=== PATIENT | female | born 2000 | race Two or more races ===

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

== ENCOUNTER 2023-09-04 21:26 | Emergency (ER) | payer OTHER, SELFPAY ==
[~2023-09-04] VITALS: Ht 157.5 cm; Wt 100.7 kg
[2023-09-05 05:38] LABS: APPEARANCE, URINE HAZY (CLEAR); BACTERIA, URINE AUTO NEGATIVE (NEGATIVE); BILIRUBIN, URINE AUTO NEGATIVE (NEGATIVE); BLOOD, URINE BLOOD 3+ (NEGATIVE); COLOR, URINE YELLOW (YELLOW); GLUCOSE, URINE (UA) AUTO NEGATIVE (NEGATIVE); KETONE, URINE AUTO NEGATIVE (NEGATIVE); LEUKOCYTE ESTERASE, URINE AUTO NEGATIVE (NEGATIVE); MUCUS, URINE SMALL (NEGATIVE); NITRITE, URINE AUTO NEGATIVE (NEGATIVE); PROTEIN, URINE AUTO NEGATIVE (NEGATIVE); RBC, URINE AUTO 1 /HPF (0-3); SPECIFIC GRAVITY URINE AUTO 1.028 (1.002-1.035); SQUAMOUS EPITHELIAL CELL UR AU 16 /HPF (0-6); UROBILINOGEN, URINE AUTO 0.2 mg/dL (0.0-2.0); WBC, URINE AUTO 2 /HPF (0-3)
[2023-09-05 07:18] VITALS: BP 119/56; TEMP 98; O2SAT 99
== END 2023-09-05 07:25 | disposition home or self-care (01) ==
LOC: M ED 21:26
DX: O20.0 Threatened abortion (principal); Z91.018 Allergy to other foods; Z3A.01 Less than 8 weeks gestation of pregnancy

== ENCOUNTER → 2023-12-13 | Outpatient (CLI) | payer OTHER | LOC: M RAD 13:19 | PROVIDERS: ATTEND Obstetrics & Gynecology | DX: O43.892 Other placental disorders, second trimester (principal); Z3A.22 22 weeks gestation of pregnancy; O41.02X0 Oligohydramnios, second trimester, not applicable or unspecified ==

== ENCOUNTER → 2023-12-17 | Outpatient (CLI) | payer OTHER ==
[2023-12-17 15:29] LABS: HEMATOCRIT 32.9 % (36.0-47.0); HEMOGLOBIN 9.9 g/dl (12.0-15.5); MEAN CORPUSCULAR HEMOGLOBIN 22.6 pg (27.0-33.0); MEAN CORPUSCULAR HGB CONC 30.1 g/dl (32.0-36.5); MEAN CORPUSCULAR VOLUME 75.1 fl (80.0-96.0); PLATELET COUNT, AUTOMATED 355 10^3/uL (150-450); RED BLOOD COUNT 4.38 10^6/uL (4.00-5.40); WHITE BLOOD COUNT 8.5 10^3/uL (4.0-10.0)
[2023-12-17 15:44] LABS: URIC ACID 3.4 MG/DL (3.1-7.8)
[2023-12-17 15:46] LABS: LDH LACTATE DEHYDROGENASE 125 U/L (120-246)
[2023-12-17 15:47] LABS: ALT/SGPT < 9 U/L (7.0-40); AST/SGOT < 8 U/L (<34); BILIRUBIN,TOTAL 0.2 MG/DL (0.3-1.2); CREATININE FOR GFR 0.58 MG/DL (0.55-1.30); GLOMERULAR FILTRATION RATE > 60.0 (>60)
[2023-12-17 16:30] LABS: TOTAL PROTEIN,RANDOM URINE 18.7 MG/DL (0.0-14.0)
[2023-12-17 16:36] LABS: CREATININE,RANDOM URINE 211.8 MG/DL
== END ==
LOC: M PLALAB 14:09
PROVIDERS: ATTEND Nurse Practitioner Family
DX: O09.292 Supervision of pregnancy with other poor reproductive or obstetric history, second trimester (principal)

== ENCOUNTER → 2023-12-23 | Outpatient (CLI) | payer OTHER | LOC: M RAD 11:51 | PROVIDERS: ATTEND Nurse Practitioner Family | DX: O09.292 Supervision of pregnancy with other poor reproductive or obstetric history, second trimester (principal) ==

== ENCOUNTER → 2024-01-14 | Outpatient (CLI) | payer OTHER ==
[2024-01-14 18:29] LABS: HEMATOCRIT 31.2 % (36.0-47.0); HEMOGLOBIN 9.3 g/dl (12.0-15.5); MEAN CORPUSCULAR HEMOGLOBIN 22.8 pg (27.0-33.0); MEAN CORPUSCULAR HGB CONC 29.8 g/dl (32.0-36.5); MEAN CORPUSCULAR VOLUME 76.5 fl (80.0-96.0); PLATELET COUNT, AUTOMATED 348 10^3/uL (150-450); RED BLOOD COUNT 4.08 10^6/uL (4.00-5.40); WHITE BLOOD COUNT 8.6 10^3/uL (4.0-10.0)
[2024-01-14 18:56] LABS: GLUCOSE CHALLENGE TEST 1 HOUR 132 MG/DL (LESS THAN 140)
[2024-01-14 19:25] LABS: HIV 1&2 SCREEN NEGATIVE (NEGATIVE)
[2024-01-14 19:33] LABS: HEPATITIS C VIRUS ABY INDEX 0.22 INDEX (<0.8)
[2024-01-14 20:13] LABS: GC DNA AMPLIFICATION NEGATIVE (NEGATIVE)
== END ==
LOC: M PLALAB 14:02
PROVIDERS: ATTEND Nurse Practitioner Family
DX: O09.292 Supervision of pregnancy with other poor reproductive or obstetric history, second trimester (principal)

== ENCOUNTER → 2024-02-27 | Outpatient (CLI) | payer OTHER | LOC: M LAB 06:41 | PROVIDERS: ATTEND Nurse Practitioner Family | DX: R73.09 Other abnormal glucose (principal) ==

== ENCOUNTER → 2024-02-28 | Outpatient (CLI) | payer OTHER ==
[2024-02-28 18:32] LABS: HEMATOCRIT 30.8 % (36.0-47.0); HEMOGLOBIN 9.3 g/dl (12.0-15.5); MEAN CORPUSCULAR HEMOGLOBIN 22.9 pg (27.0-33.0); MEAN CORPUSCULAR HGB CONC 30.2 g/dl (32.0-36.5); MEAN CORPUSCULAR VOLUME 75.7 fl (80.0-96.0); PLATELET COUNT, AUTOMATED 365 10^3/uL (150-450); RED BLOOD COUNT 4.07 10^6/uL (4.00-5.40); WHITE BLOOD COUNT 9.3 10^3/uL (4.0-10.0)
[2024-02-28 19:01] LABS: FERRITIN 15.6 NG/ML (7.3-270.7)
== END ==
LOC: M PLALAB 16:22
PROVIDERS: ATTEND Nurse Practitioner Family
DX: O99.013 Anemia complicating pregnancy, third trimester (principal); Z3A.00 Weeks of gestation of pregnancy not specified

== ENCOUNTER 2024-03-16 11:09 | Outpatient (CLI) | payer OTHER ==
[~2024-03-16] VITALS: Ht 157.5 cm; Wt 101.8 kg
[~2024-03-16 11:09] MED LIST: ALBUTEROL SULFATE 2.5MG/0.5ML INH NEB SOLN INH PRN; EPINEPHrine INJ 1 MG/ML 1ML AMP IM PRN; diphenhydrAMINE 50MG/ML VIAL IV PRN; methylPREDNISolone 125MG 2ML VIAL IV PRN
[2024-03-16 11:15] VITALS: BP 144/94; O2SAT 97
[2024-03-16] MEDS: diphenhydrAMINE 25MG CAP PO ONE (11:34)
[2024-03-16] MEDS: ACETAMINOPHEN 650 MG PO ONE (11:35)
[2024-03-16] MEDS: FERRIC CARBOXYMALTOSE 750 MG (VIAL MATE) IN 100ML NS IV ONE (11:35)
[2024-03-16 12:15] VITALS: BP 124/76; O2SAT 100
== END 2024-03-16 12:20 ==
LOC: M INFU 11:09
PROVIDERS: ATTEND Nurse Practitioner Family
DX: D64.9 Anemia, unspecified (principal); Z91.018 Allergy to other foods; Z91.041 Radiographic dye allergy status
CPT/HCPCS: 96365; J1439

== ENCOUNTER 2024-03-23 12:30 | Outpatient (CLI) | payer OTHER ==
[~2024-03-23] VITALS: Ht 157.5 cm; Wt 102.3 kg
[2024-03-23 12:30] VITALS: BP 138/93; O2SAT 99
[2024-03-23] MEDS: diphenhydrAMINE 25MG PO PRIOR TO INFUSION PO ONE (12:34)
[2024-03-23] MEDS: ACETAMINOPHEN 650MG PO PRIOR TO INFUSION PO ONE (12:34)
[2024-03-23] MEDS: FERRIC CARBOXYMALTOSE 750 MG (VIAL MATE) IN 100ML NS IV ONE (12:35)
[2024-03-23 13:10] VITALS: BP 132/80; O2SAT 99
== END 2024-03-23 13:10 ==
LOC: M INFU 12:30
PROVIDERS: ATTEND Nurse Practitioner Family
DX: D64.9 Anemia, unspecified (principal); Z91.018 Allergy to other foods; Z91.041 Radiographic dye allergy status
CPT/HCPCS: 96365; J1439

== ENCOUNTER → 2024-03-25 | Outpatient (REF) | payer OTHER | LOC: M SFHCWAGY 17:01 | PROVIDERS: ATTEND Obstetrics & Gynecology | DX: Z36.85 Encounter for antenatal screening for Streptococcus B (principal); Z3A.36 36 weeks gestation of pregnancy ==

== ENCOUNTER 2024-04-01 11:05 | Inpatient (IN) | payer OTHER ==
[2024-04-01] VITALS (19 sets, daily range): BP systolic 110–142; BP diastolic 52–80
[~2024-04-01] VITALS: Ht 157.5 cm; Wt 106.7 kg
[2024-04-01] MEDS ORDERED: LIDOCAINE 1% MDV 20ML VIAL INFIL PRN (13:40)
[2024-04-01] MEDS ORDERED: METHYLERGONOVINE MALEATE 0.2MG/ML 1ML VIAL IM PRN (13:40)
[2024-04-01] MEDS ORDERED: OXYTOCIN DRIP 30 UNITS in IV 1 EA IV PRN (13:40)
[2024-04-01] MEDS ORDERED: OXYTOCIN INJ 10UNITS/ML 1ML VIAL IM PRN (13:40)
[2024-04-01] MEDS ORDERED: CARBOPROST TROMETHAMINE 250 MCG/ML AMP IM PRN (13:40)
[2024-04-01] MEDS ORDERED: TRANEXAMIC ACID INJection 1,000 MG in NS 100 ML IV PRN (13:40)
[2024-04-01 14:42] LABS: HEMATOCRIT 30.1 % (36.0-47.0); HEMOGLOBIN 9.2 g/dl (12.0-15.5); MEAN CORPUSCULAR HEMOGLOBIN 23.6 pg (27.0-33.0); MEAN CORPUSCULAR HGB CONC 30.6 g/dl (32.0-36.5); MEAN CORPUSCULAR VOLUME 77.2 fl (80.0-96.0); PLATELET COUNT, AUTOMATED 265 10^3/uL (150-450); WHITE BLOOD COUNT 8.8 10^3/uL (4.0-10.0)
[2024-04-01] MEDS: miSOPROStol 50MCG 1/2 TABLET PO SCH (14:51)
[2024-04-01 15:52] LABS: HIV 1&2 SCREEN NEGATIVE (NEGATIVE)
[2024-04-01 16:01] LABS: HEPATITIS C VIRUS ABY INDEX 0.13 INDEX (<0.8)
[2024-04-01] MEDS: BUTORPHANOL 2 MG/ML 1ML VIAL IV ONE (19:20)
[2024-04-01] MEDS: PROMETHAZINE 25MG/ML 1ML VIAL IV ONE (19:20)
[2024-04-01] MEDS: LACTATED RINGER'S 1000 ML IV STA (20:06)
[2024-04-01] MEDS ORDERED: diphenhydrAMINE 50MG/ML VIAL IV PRN (20:50)
[2024-04-01] MEDS ORDERED: ePHEDrine SULFATE 25 MG/5 ML(5MG/ML) SYRINGE IVP PRN (20:50)
[2024-04-01] MEDS ORDERED: LR 500 ML IV PRN (20:50)
[2024-04-01] MEDS ORDERED: NALOXONE INJ 0.4MG/1ML VIAL IV PRN (20:50)
[2024-04-01] MEDS ORDERED: ONDANSETRON 4MG 2ML VIAL IV PRN (20:50)
[2024-04-01] MEDS ORDERED: EPIDURAL/PCA KEYS XX PRN (20:50)
[2024-04-01] MEDS: FENTANYL/ROPIVACAINE/NACL BAG 100 ML EPIDURAL SCH (20:58)
[2024-04-02] VITALS (42 sets, daily range): BP systolic 108–148; BP diastolic 52–88; O2SAT 98
[2024-04-02] MEDS: LR 1,000 ML IV SCH ×3 (02:46→08:45)
[2024-04-02] MEDS: OXYTOCIN DRIP 30 UNITS in IV 1 EA IV SCH (08:56)
[2024-04-02] MEDS: OXYTOCIN DRIP 30 UNITS in IV 1 EA IV PRN (19:03)
[2024-04-02] MEDS ORDERED: METHYLERGONOVINE MALEATE 0.2 MG TAB PO PRN (20:25)
[2024-04-02] MEDS ORDERED: ACETAMINOPHEN 325 MG TAB PO PRN (20:25)
[2024-04-02] MEDS ORDERED: DOCUSATE SODIUM 100MG CAPSULE PO PRN (20:25)
[2024-04-02] MEDS ORDERED: RHOGAM 300MCG (1500IU) INJ IM SCH (20:25)
[2024-04-02] MEDS ORDERED: PRENTAB9 PO (20:28)
[2024-04-02] MEDS: IBUPROFEN 800 MG TAB PO PRN (20:33)
[2024-04-02] MEDS: ACETAMINOPHEN 500 MG TAB PO PRN (20:33)
[2024-04-03] MEDS: DIBUCAINE 1% OINTMENT 30GM TOP PRN (03:07)
[2024-04-03 06:00] VITALS: BP 133/75; O2SAT 99
[2024-04-03] MEDS: PRENATAL VITAMINS CHEWABLE TABLET PO SCH (09:00)
[2024-04-03 18:00] VITALS: BP 132/77; O2SAT 97
[2024-04-04 06:00] VITALS: BP 142/89; O2SAT 98
[2024-04-04] MEDS: IBUPROFEN 600MG TAB PO PRN (08:50)
[2024-04-04] MEDS: MEASLES,MUMPS,RUBELLA VACCINE INJ (MMR-II) SC.IMMUN ONE (09:00)
== END 2024-04-04 13:15 | disposition home or self-care (01) | DRG 807 ==
LOC: M LDO 11:05 → M LDI 13:41 → M OBS 04-02 20:00 → M LDI 04-02 20:10 → M OBS 04-02 20:48
PROVIDERS: ADMIT Advanced Practice Midwife; ATTEND Obstetrics & Gynecology
PROC: 10E0XZZ Delivery of Products of Conception, External Approach (ICD-10-PCS; principal; 2024-04-02)
PROC: 0HQ9XZZ Repair Perineum Skin, External Approach (ICD-10-PCS; 2024-04-02)
DX: O42.02 Full-term premature rupture of membranes, onset of labor within 24 hours of rupture (principal); Z37.0 Single live birth; Z3A.37 37 weeks gestation of pregnancy; Z91.018 Allergy to other foods; Z91.041 Radiographic dye allergy status; O70.0 First degree perineal laceration during delivery

== ENCOUNTER 2024-04-18 13:59 | Emergency (ER) | payer OTHER ==
[~2024-04-18] VITALS: Ht 157.5 cm; Wt 95.0 kg
[~2024-04-18 13:59] MED LIST changes: -ALBUTEROL SULFATE 2.5MG/0.5ML INH NEB SOLN INH PRN; -EPINEPHrine INJ 1 MG/ML 1ML AMP IM PRN; +PRENTAB9 PO; -diphenhydrAMINE 50MG/ML VIAL IV PRN; -methylPREDNISolone 125MG 2ML VIAL IV PRN
[2024-04-18 14:54] LABS: BASO % 0.4 % (0.0-1.0); EOS # 0.1 10^3/uL (0.0-0.5); EOS % 1.3 % (0.0-3.0); HEMATOCRIT 33.6 % (36.0-47.0); HEMOGLOBIN 10.2 g/dl (12.0-15.5); LYMPH # 2.1 10^3/uL (1.5-5.0); LYMPH % 25.4 % (24.0-44.0); MEAN CORPUSCULAR HEMOGLOBIN 23.6 pg (27.0-33.0); MEAN CORPUSCULAR HGB CONC 30.4 g/dl (32.0-36.5); MEAN CORPUSCULAR VOLUME 77.8 fl (80.0-96.0); MONO # 0.5 10^3/uL (0.0-0.8); MONO % 5.4 % (2.0-8.0); NEUTROPHILS # 5.6 10^3/uL (1.5-8.5); NEUTROPHILS % 67.3 % (36.0-66.0); PLATELET COUNT, AUTOMATED 341 10^3/uL (150-450); RED BLOOD COUNT 4.32 10^6/uL (4.00-5.40); WHITE BLOOD COUNT 8.3 10^3/uL (4.0-10.0)
[2024-04-18 15:05] LABS: INR 1.04
[2024-04-18 15:17] LABS: LIPASE 22 U/L (12-53)
[2024-04-18 15:18] LABS: CK-MB VALUE MASS < 1.0 NG/ML (<3.6)
[2024-04-18 15:19] LABS: ALKALINE PHOSPHATASE 106 U/L (35-104); ALT/SGPT < 9 U/L (7.0-40); AST/SGOT 12 U/L (<34); BILIRUBIN,DIRECT 0.1 MG/DL (<0.4); BILIRUBIN,TOTAL 0.5 MG/DL (0.3-1.2); TOTAL PROTEIN 7.7 G/DL (5.7-8.2)
[2024-04-18 15:33] LABS: CPK CREATINE PHOSPHOKINASE 101 U/L (34-145); MB/CK RELATIVE INDEX 0.99 (< OR =4)
[2024-04-18] MEDS: diphenhydrAMINE 50MG/ML VIAL IV STA (18:22)
[2024-04-18] MEDS: methylPREDNISolone 40MG 1ML VIAL IV ONE (18:23)
[2024-04-18] MEDS ORDERED: ISOVUE-370 76% 100ML VIAL As Ordered ONE (18:43)
[2024-04-18 20:57] VITALS: BP 120/67; TEMP 98.9; O2SAT 100
== END 2024-04-18 21:03 | disposition home or self-care (01) ==
LOC: M ED 13:59
DX: R07.9 Chest pain, unspecified (principal); I45.10 Unspecified right bundle-branch block; F17.290 Nicotine dependence, other tobacco product, uncomplicated; Z91.041 Radiographic dye allergy status; Z91.018 Allergy to other foods
CPT/HCPCS: 36415; 71045; 71275; 80047; 80076; 82550; 82553; 83690; 83880; 84484; 85025; 85610; 93005; 93041; 94760; 96374; 96375; 99285; J1200; J2919; Q9967

== ENCOUNTER → 2024-06-25 | Outpatient (CLI) | payer OTHER | LOC: M WHC 07:13 | PROVIDERS: ATTEND Family Medicine | DX: N63.20 Unspecified lump in the left breast, unspecified quadrant (principal); N63.10 Unspecified lump in the right breast, unspecified quadrant; D24.2 Benign neoplasm of left breast ==

== ENCOUNTER 2024-09-03 10:30 | Inpatient (IN) | payer OTHER ==
[2024-09-03] VITALS (7 sets, daily range): BP systolic 103–123; BP diastolic 68–82; TEMP 96.3–98.4; O2SAT 96–100
[~2024-09-03] VITALS: Ht 157.5 cm; Wt 94.2 kg
[~2024-09-03 10:30] MED LIST changes: +ACET-683 PO; +ASPI81CH48 PO; +BACI1CAP PO; +BACTDSTA PO; +DOXY100T27 PO; +FERR325T19 PO; +IRON65TA2 PO; +OXYC1TAB23 PO
[2024-09-03 11:15] LABS: PLATELET COUNT, AUTOMATED 398 10^3/uL (150-450)
[2024-09-03 11:50] LABS: CALCIUM LEVEL 9.8 MG/DL (8.5-10.1); CARBON DIOXIDE LEVEL 27 MMOL/L (20-31); CHLORIDE LEVEL 101 MMOL/L (98-107); CREATININE FOR GFR 0.76 MG/DL (0.55-1.30); GLOMERULAR FILTRATION RATE > 90.0 (>60); POTASSIUM SERUM 4.2 MMOL/L (3.5-5.1); SODIUM LEVEL 138 MMOL/L (136-145)
[2024-09-03] MEDS ORDERED: LR 1,000 ML IV SCH (12:05)
[2024-09-03] MEDS ORDERED: HOME MED LIST COMPLETE! XX SCH (12:30)
[2024-09-03] MEDS ORDERED: LIDOCAINE 2% 100 MG/5 ML SDV (FOR ANES.) As Ordered ONE (12:41)
[2024-09-03] MEDS ORDERED: ROCURONIUM BROMIDE 50MG/5ML VIAL As Ordered ONE (12:41)
[2024-09-03] MEDS ORDERED: SUGAMMADEX SODIUM 500 MG/5 ML VIAL As Ordered ONE (12:42)
[2024-09-03] MEDS ORDERED: ONDANSETRON 4MG 2ML VIAL As Ordered ONE (12:42)
[2024-09-03] MEDS ORDERED: GLYCOPYRROLATE INJ 0.2 MG/ML 2 ML VIAL As Ordered ONE (12:42)
[2024-09-03] MEDS ORDERED: dexAMETHasone 4 MG/ML 1 ML VIAL As Ordered ONE (12:42)
[2024-09-03] MEDS ORDERED: KETOROLAC 30 MG/ML 1 ML VIAL As Ordered ONE (12:42)
[2024-09-03] MEDS ORDERED: ACETAMINOPHEN 1000MG/100ML IV BAG As Ordered ONE (12:42)
[2024-09-03] MEDS ORDERED: MIDAZOLAM INJ 2 MG/2 ML VIAL As Ordered ONE (12:51)
[2024-09-03] MEDS ORDERED: EPINEPHrine INJ 1 MG/ML 1ML AMP As Ordered ONE (13:10)
[2024-09-03] MEDS: HEPARIN SOD 5000 UNITS/ML 1 ML VIAL/SYRINGE SQ ONE (14:29)
[2024-09-03] MEDS: GENTAMICIN SULF 80 MG/2 ML VIAL As Ordered ONE (14:33)
[2024-09-03] MEDS ORDERED: HYDROmorphone HCL 2 MG/ML 1 ML VIAL As Ordered ONE (14:34)
[2024-09-03] MEDS: ceFAZolin SOD 2 GM IV ONCE IV ONE (14:50)
[2024-09-03] MEDS ORDERED: MORPHINE 2 MG/ML 1 ML VIAL IV PRN (15:50)
[2024-09-03] MEDS ORDERED: HYDROMORPHONE HCL 0.5 MG/0.5 ML SYRINGE IV PRN (15:50)
[2024-09-03] MEDS ORDERED: PERCOCET 5MG/325MG TAB PO PRN (16:55)
[2024-09-03 18:24] LABS: IRON (FE) 82 UG/DL (50-170); PERCENT SATURATION 26.3 % (13.2-45.0)
[2024-09-03 18:26] LABS: VITAMIN B12 LEVEL 704 PG/ML (211-911)
[2024-09-03] MEDS: CEFDINIR 300 MG CAP PO SCH (20:20)
[2024-09-03] MEDS: PERCOCET 5MG/325MG TAB PO PRN (20:34)
[2024-09-04 02:10] VITALS: BP 140/80; TEMP 97; O2SAT 98
[2024-09-04 06:10] VITALS: BP 109/62; TEMP 96.9; O2SAT 99
[2024-09-04 06:21] LABS: PLATELET COUNT, AUTOMATED 392 10^3/uL (150-450)
[2024-09-04 06:54] LABS: CALCIUM LEVEL 9.2 MG/DL (8.5-10.1); CARBON DIOXIDE LEVEL 26 MMOL/L (20-31); CHLORIDE LEVEL 101 MMOL/L (98-107); CREATININE FOR GFR 0.72 MG/DL (0.55-1.30); GLOMERULAR FILTRATION RATE > 90.0 (>60); POTASSIUM SERUM 4.9 MMOL/L (3.5-5.1); SODIUM LEVEL 138 MMOL/L (136-145)
[2024-09-04 10:00] VITALS: BP 99/64; TEMP 98; O2SAT 100
[2024-09-04] MEDS: ENOXAPARIN 40 MG/0.4 ML SYRINGE (J1650 PER 10MG) SC SCH (10:00)
[2024-09-04 14:00] VITALS: BP 106/72; TEMP 98.2; O2SAT 99
[2024-09-04 20:19] VITALS: BP 129/81; TEMP 98.2; O2SAT 97
[2024-09-05 05:06] VITALS: BP 115/73; TEMP 96.6; O2SAT 100
[2024-09-05 12:00] VITALS: BP 112/67; TEMP 97.5; O2SAT 98
[2024-09-05 21:02] VITALS: BP 128/81; TEMP 97.5; O2SAT 99
[2024-09-06 08:00] VITALS: BP 128/81; TEMP 97.5; O2SAT 98
[2024-09-06 12:00] VITALS: BP 126/80; TEMP 97.4; O2SAT 99
[2024-09-06 21:12] VITALS: BP 121/75; TEMP 97.8; O2SAT 99
[2024-09-07 05:30] VITALS: BP 119/79; TEMP 97.5; O2SAT 100
[2024-09-07 06:25] LABS: BASO # 0.0 10^3/uL (0.0-0.2); BASO % 0.6 % (0.0-1.0); EOS # 0.2 10^3/uL (0.0-0.5); EOS % 3.4 % (0.0-3.0); LYMPH # 3.5 10^3/uL (1.5-5.0); LYMPH % 48.7 % (24.0-44.0); MONO # 0.5 10^3/uL (0.0-0.8); MONO % 6.9 % (2.0-8.0); NEUTROPHILS # 2.9 10^3/uL (1.5-8.5); NEUTROPHILS % 40.1 % (36.0-66.0); PLATELET COUNT, AUTOMATED 392 10^3/uL (150-450)
[2024-09-07 06:57] LABS: CALCIUM LEVEL 9.2 MG/DL (8.5-10.1); CARBON DIOXIDE LEVEL 27 MMOL/L (20-31); CHLORIDE LEVEL 103 MMOL/L (98-107); CREATININE FOR GFR 0.64 MG/DL (0.55-1.30); GLOMERULAR FILTRATION RATE > 90.0 (>60); POTASSIUM SERUM 4.2 MMOL/L (3.5-5.1); SODIUM LEVEL 141 MMOL/L (136-145)
[2024-09-07 12:00] VITALS: BP 124/68; TEMP 97.8; O2SAT 98
[2024-09-07] MEDS: AUGMENTIN 875 MG TAB PO SCH (12:18)
[2024-09-07 19:51] VITALS: BP 121/79; TEMP 98.9; O2SAT 100
[2024-09-08 04:14] VITALS: BP 104/56; TEMP 97.6; O2SAT 99
[2024-09-08 08:30] VITALS: O2SAT 96
[2024-09-08 12:00] VITALS: BP 129/84; TEMP 98; O2SAT 100
[2024-09-08 21:39] VITALS: BP 121/82; TEMP 97.5; O2SAT 100
[2024-09-09 05:30] VITALS: BP 117/92; TEMP 97.3; O2SAT 99
[2024-09-09 06:30] LABS: PLATELET COUNT, AUTOMATED 416 10^3/uL (150-450)
[2024-09-09 06:51] LABS: ALT/SGPT < 9 U/L (7.0-40); AST/SGOT 12 U/L (<34); CALCIUM LEVEL 9.2 MG/DL (8.5-10.1); CARBON DIOXIDE LEVEL 27 MMOL/L (20-31); CHLORIDE LEVEL 101 MMOL/L (98-107); CREATININE FOR GFR 0.62 MG/DL (0.55-1.30); GLOMERULAR FILTRATION RATE > 90.0 (>60); POTASSIUM SERUM 4.2 MMOL/L (3.5-5.1); SODIUM LEVEL 138 MMOL/L (136-145)
[2024-09-09 21:47] VITALS: BP 132/84; TEMP 97.2; O2SAT 100
[2024-09-10 04:45] VITALS: BP 120/86; TEMP 97.5; O2SAT 98
[2024-09-10] MEDS: ASPIRIN 81 MG ENTERIC TABLET PO SCH (09:00)
[2024-09-10] MEDS ORDERED: AMOX875T2 PO (11:26)
[2024-09-10] MEDS ORDERED: RISATAB3 PO (11:26)
[2024-09-10] MEDS ORDERED: PERCOCET PO (11:26)
[2024-09-10 12:00] VITALS: BP 93/59; TEMP 97.5; O2SAT 97
== END 2024-09-10 16:20 | disposition home or self-care (01) | DRG 578 ==
LOC: M SDC 10:30 → M RR INP 16:51 → M MS5PR 17:10
PROVIDERS: ADMIT Internal Medicine; ATTEND Internal Medicine
PROC: 0HRCX74 Replacement of Left Upper Arm Skin with Autologous Tissue Substitute, Partial Thickness, External Approach (ICD-10-PCS; 2024-09-03)
PROC: 0HBHXZZ Excision of Right Upper Leg Skin, External Approach (ICD-10-PCS; 2024-09-03)
PROC: 0HRBX74 Replacement of Right Upper Arm Skin with Autologous Tissue Substitute, Partial Thickness, External Approach (ICD-10-PCS; principal; 2024-09-03 12:15)
DX: L73.2 Hidradenitis suppurativa (principal); E66.812 Obesity, class 2; F17.290 Nicotine dependence, other tobacco product, uncomplicated; D50.9 Iron deficiency anemia, unspecified; Z91.041 Radiographic dye allergy status; Z68.38 Body mass index [BMI] 38.0-38.9, adult

== ENCOUNTER → 2024-10-26 | Outpatient (REF) | payer OTHER ==
[~2024-10-26] MED LIST changes: +AMOX875T2 PO; +PERCOCET PO; +RISATAB3 PO
== END ==
LOC: M LAB REF 09:56
PROVIDERS: ATTEND Physician Assistant
DX: S41.101D Unspecified open wound of right upper arm, subsequent encounter (principal)